=== PATIENT | female | born 1955 | race Hispanic/Latino ===

== ENCOUNTER 2017-08-01 10:42 | Observation (INO) | payer BC ==
[2017-08-01] MEDS ORDERED: Sodium Chloride 0.9% 1,000 ML IV STA (11:04)
--- NOTE | 2017-08-01 11:08 | ED PDOC ---
HPI: Chest Pain Time Seen by Provider: 08/01/17 10:58 History Per: Patient Onset/Duration Of Symptoms: Hrs (2) Current Symptoms Are (Timing): Still Present Severity: Moderate Associated Symptoms: denies: Nausea, Dyspnea, Diaphoresis, Syncope Additional Complaint(s): Palpitations assoc with weakness since this morning. Denies chest pain or LOC. No NVD. No fever. Past Medical History Vital Signs: Last Vital Signs Temp 96.4 F L 08/01/17 10:53 Pulse 88 08/01/17 11:37 Resp 14 08/01/17 11:37 BP 121/73 08/01/17 11:37 Pulse Ox 100 08/01/17 11:37 - Medical History PMH: Emphysema - Family History Family History: States: Unknown Family Hx - Home Medications Home Medications: Ambulatory Orders Medication Instructions Recorded Albuterol HFA [Ventolin HFA 90 2 puff IH Q4H PRN 08/01/17 mcg/actuation (8 g)] Alprazolam [Xanax] 0.5 mg PO Q12H 08/01/17 Escitalopram [Lexapro] 10 mg PO DAILY 08/01/17 Fluticasone/Salmeterol [Airduo 1 puff IH Q12H 08/01/17 Respiclick 113-14 Mcg] Melatonin [Melatonin] 5 mg PO HS 08/01/17 Omeprazole [Omeprazole] 20 mg PO DAILY 08/01/17 levoFLOXacin [Levaquin] 500 mg PO DAILY 08/01/17 - Allergies Allergies/Adverse Reactions: Allergies Allergy/AdvReac Type Severity Reaction Status Date / Time No Known Allergies Allergy Verified 03/25/16 11:48 Review of Systems ROS Statement: Except As Marked, All Systems Reviewed And Found Negative Constitutional: Positive for: Weakness Cardiovascular: Positive for: Palpitations Neurological: Negative for: Weakness, Numbness, Seizures Physical Exam - Reviewed Nursing Documentation Reviewed: Yes Vital Signs Reviewed: Yes - Physical Exam Appears: Positive for: Non-toxic, No Acute Distress Head Exam: Positive for: ATRAUMATIC, NORMAL INSPECTION, NORMOCEPHALIC Skin: Positive for: Normal Color, Warm, DRY Eye Exam: Positive for: EOMI, Normal appearance, PERRL ENT: Positive for: Normal ENT Inspection Neck: Positive for: Normal, Painless ROM Cardiovascular/Chest: Positive for: Regular Rate, Rhythm, Tachycardia Respiratory: Positive for: CNT, Normal Breath Sounds Gastrointestinal/Abdominal: Positive for: Normal Exam, Bowel Sounds, Soft Back: Positive for: Normal Inspection Extremity: Positive for: Normal ROM Neurologic/Psych: Positive for: Alert, Oriented - Laboratory Results Result Diagrams: 08/01/17 11:39 08/01/17 11:39 - ECG O2 Sat by Pulse Oximetry: 95 Disposition - Clinical Impression Clinical Impression: Palpitations, Arrhythmia - Patient ED Disposition Is Patient to be Admitted: Yes - Disposition Disposition Time: 12:54 Condition: FAIR - Pt Status Changed To: Hospital Disposition Of: Observation - POA Present On Arrival: None
[2017-08-01 11:48] LABS: BASO # 0.1 K/uL (0.0-0.2); BASO % 0.7 % (0.0-2.0); EOS # 0.1 K/uL (0.0-0.7); HEMOGLOBIN 14.2 g/dL (12.0-16.0); LYMPH % 26.2 % (20.0-40.0); MEAN CELL VOLUME 96.3 fl (81.0-99.0); MEAN CORPUSCULAR HEMOGLOBIN 32.2 pg (27.0-31.0); MEAN CORPUSCULAR HGB CONC 33.5 g/dL (33.0-37.0); MEAN PLATELET VOLUME 7.6 fl (7.2-11.7); MONO # 0.4 K/uL (0.0-0.8); MONO % 4.9 % (0.0-10.0); NEUT # 5.1 K/uL (1.8-7.0); NEUT % 67.2 % (50.0-75.0); NRBC % 0.1 % (0.0-0.0); RBC 4.41 Mil/uL (3.80-5.20); WHITE BLOOD COUNT 7.6 K/uL (4.8-10.8)
[2017-08-01 12:22] LABS: ALB/GLOB RATIO 1.3 (1.0-2.1); ALBUMIN 3.9 g/dL (3.5-5.0); ALT/SGPT 37 U/L (9-52); AST/SGOT 28 U/L (14-36); CALCIUM 9.6 mg/dL (8.4-10.2); GFR AFRICAN-AMERICAN > 60; GFR NON-AFRICAN AMERICAN 56
[2017-08-01 12:28] LABS: BLOOD UREA NITROGEN 21 mg/dl (7-17)
[2017-08-01] MEDS ORDERED: Albuterol HFA 90 mcg/actuation (8 g) IH PRN (14:30)
[2017-08-01 16:32] LABS: T4 6.78 ug/dl (5.5-11.0)
[2017-08-01 17:11] LABS: INR 1.3 (0.9-1.2); PARTIAL THROMBOPLASTIN TIME 31.2 Seconds (25.6-37.1)
--- NOTE | 2017-08-01 17:36 | CARD ---
APPROVED REPORT EXAM: Two-dimensional and M-mode echocardiogram with Doppler and color Doppler. INDICATION Palpitations 2D DIMENSIONS IVSd1.04 (0.7-1.1cm)LVDd3.66 (3.9-5.9cm) PWd1.12 (0.7-1.1cm)IVSs1.34 (0.8-1.2cm) LVDs2.65 (2.5-4.0cm)FS (%) 27.4 % PWs1.53 (0.8-1.2cm)LVEF (%)55.0 (>50%) M-Mode DIMENSIONS Left Atrium (MM)3.80 (2.5-4.0cm)Aortic Root2.67 (2.2-3.7cm) Aortic Cusp Exc.2.10 (1.5-2.0cm) Mitral Valve MV E Jcwbrpmg38.9cm/sMV E Peak Gr.146mmHgMV DECEL FHHR332yc MV A Nwigjpff75.7cm/sMV WSQ42ltZ/A ratio0.8 MVA (PHT)3.03cm2 TDI E/Lateral E'0.0E/Medial E'0.0 Tricuspid Valve TR Peak Ndkkvhmp729lv/sRAP EBMZWWGI2soElVA Peak Gr.23mmHg [id number] LEFT VENTRICLE The left ventricle is normal size. There is normal left ventricular wall thickness. The left ventricular function is normal. The left ventricular ejection fraction is within the normal range. There is normal LV segmental wall motion. Transmitral Doppler flow pattern is Grade I-abnormal relaxation pattern. RIGHT VENTRICLE The right ventricle is normal size. There is normal right ventricular wall thickness. The right ventricular systolic function is normal. ATRIA The left atrium size is normal. The right atrium size is normal. AORTIC VALVE The aortic valve is mildly thickened. No aortic regurgitation is present. There is no aortic valvular stenosis. MITRAL VALVE The anterior mitral valve leaflet appears myxomatous. There is no mitral valve stenosis. Mitral regurgitation is trace. TRICUSPID VALVE The tricuspid valve is normal in structure. There is trace to mild tricuspid regurgitation. PULMONIC VALVE The pulmonary valve is normal in structure. There is no pulmonic valvular regurgitation. GREAT VESSELS The aortic root is normal in size. The IVC was not visualized. PERICARDIAL EFFUSION The pericardium appears normal. <Conclusion> The left ventricle is normal size. There is normal left ventricular wall thickness. The left ventricular function is normal. The left ventricular ejection fraction is within the normal range. There is normal LV segmental wall motion. Transmitral Doppler flow pattern is Grade I-abnormal relaxation pattern. The anterior mitral valve leaflet appears myxomatous, consider CAL if there is a history of syncope Mitral regurgitation is trace.
--- NOTE | 2017-08-01 17:48 | CARD ---
APPROVED REPORT EKG Measurement Heart [id number] <Conclusion> Supraventricular tachycardia with frequent premature ventricular complexes Left anterior fascicular block Abnormal ECG
[2017-08-01] MEDS: Enoxaparin 40 mg Syringe SC SCH (18:23)
--- NOTE | 2017-08-01 20:12 | CP.PCM.CON ---
History of Present Illness - History of Present Illness History of Present Illness: THE PATIENT IS A 62 YEAR OLD FEMALE WITH A HISTORY OF SVT, COPD FROM CIGARETTE SMOKING, ANXIETY AND DEPRESSION. SHE HAD CLASSICAL SVT SEVERAL YEARS AGO AND WAS PLACED ON DIGOXIN WITH SUCCESS BUT SHE STOPPED IT ON HER OWN. SHE CLAIMS SHE HAD A RECENT THROAT INFECTION AND WAS PLACED ON ARITHROMAX BUT IT DIDN'T HELP AND SHE WAS CHANGED TO LEVAQIUN. SHE WAS OK YESTERDAY BUT EARLY THIS AM SHE WOKE UP EARLY AND NOTICED PALPITATIONS AND SHE FELT WEAK AND WAS SCARED SO SHE CAME TO THE ER AND WAS TACHYCARDIC AND HAD SINGLE PVCS AND SHE WAS ADMITTED TO OBSERVATION. CARDIOLOGY WAS CALLED TO SEE HER. SHE DENIES CHEST PAIN OR LOC. THE EKG WAS INCORRECTLY READ SVT BUT A CLOSE INSPECTION SHOW SINUS TACHYCARDIA, RATE OF 131 BPM AND 2 SINGLE PVC'S. SHE WAS PLACED ON METOPROLOL WITH A SLOWING OF THE HEART RATE AND SHE FEELS BETTER NOW. Past Patient History - Past Social History Smoking Status: Former Smoker - CARDIAC Hx Cardiac Disorders: Yes - PULMONARY Hx Emphysema: Yes - MUSCULOSKELETAL/RHEUMATOLOGICAL Hx Falls: No - PSYCHIATRIC Hx Anxiety: Yes Hx Depression: Yes Hx Substance Use: No - ANESTHESIA Hx Anesthesia: No Meds Allergies/Adverse Reactions: Allergies Allergy/AdvReac Type Severity Reaction Status Date / Time No Known Allergies Allergy Verified 03/25/16 11:48 - Medications Medications: Current Medications Albuterol (Ventolin Hfa 90 Mcg/Actuation (8 G)) 2 puff IH Q4H PRN PRN Reason: Shortness of Breath Alprazolam (Xanax) 0.5 mg PO Q12H [facility] Last Admin: 08/01/17 16:13 Dose: 0.5 mg Aspirin (Ecotrin) 81 mg PO DAILY [facility] Last Admin: 08/01/17 16:14 Dose: 81 mg Enoxaparin Sodium (Lovenox) 40 mg SC DAILY [facility] PRN Reason: Protocol Last Admin: 08/01/17 18:23 Dose: 40 mg Escitalopram Oxalate (Lexapro) 10 mg PO DAILY [facility] Last Admin: 08/01/17 16:39 Dose: 10 mg Metoprolol Tartrate (Lopressor) 12.5 mg PO Q12 [facility] Nicotine (Nicoderm Cq) 1 patch TD DAILY [facility] Physical Exam - Respiratory Exam Respiratory Exam: Clear to Auscultation Bilateral - Cardiovascular Exam Cardiovascular Exam: REGULAR RHYTHM, +S1, +S2 - Extremities Exam Extremities exam: Positive for: normal inspection - Additional Findings Additional findings: EKG UPON CLOSE INSPECTION SHOWS SINUS TACHYCARDIA WITH CLEARLY SEEN P WAVES AT A RATE OF 131 BPM AND 2 SINGLE PVC'S MILL SUPERVISOR NOW SHOWS NSR, R OF 73 BPM AND NO PVC'S TROPONIN NORMAL TFT NORMAL ECHO NORMAL LV SYSTOLIC CONTRACTION, MILDLY MYXOMATOUS ANTERIOR MITRAL LEAFLET, MILD MR, MILD TR Results - Vital Signs Recent Vital Signs: Last Vital Signs Temp 98.4 F 08/01/17 19:23 Pulse 85 08/01/17 19:23 Resp 20 08/01/17 19:23 BP 104/54 L 08/01/17 19:23 Pulse Ox 94 L 08/01/17 19:23 - Labs Result Diagrams: 08/01/17 11:39 08/01/17 11:39 Labs: Laboratory Results - last 24 hr 08/01/17 08/01/17 08/01/17 11:39 11:39 15:42 WBC 7.6 RBC 4.41 Hgb 14.2 Hct 42.5 MCV 96.3 MCH 32.2 H MCHC 33.5 RDW 13.0 Plt Count 240 MPV 7.6 Neut % (Auto) 67.2 Lymph % (Auto) 26.2 [place] % (Auto) 4.9 Eos % (Auto) 1.0 Baso % (Auto) 0.7 Neut # 5.1 Lymph # 2.0 [place] # 0.4 Eos # 0.1 Baso # 0.1 PT INR APTT Sodium 141 Potassium 4.6 Chloride 104 Carbon Dioxide 26 Anion Gap 16 BUN 21 H Creatinine 1.0 Est GFR ( Amer) > 60 Est GFR (Non-Af Amer) 56 Random Glucose 162 H Calcium 9.6 Total Bilirubin 0.5 AST 28 ALT 37 Alkaline Phosphatase 79 Troponin I 0.0130 Total Protein 6.9 Albumin 3.9 Globulin 2.9 Albumin/Globulin Ratio 1.3 Thyroxine (T4) 6.78 TSH 3rd Generation 1.34 08/01/17 16:12 WBC RBC Hgb Hct MCV MCH MCHC RDW Plt Count MPV Neut % (Auto) Lymph % (Auto) [place] % (Auto) Eos % (Auto) Baso % (Auto) Neut # Lymph # [place] # Eos # Baso # PT 14.0 H INR 1.3 H APTT 31.2 Sodium Potassium Chloride Carbon Dioxide Anion Gap BUN Creatinine Est GFR ( Amer) Est GFR (Non-Af Amer) Random Glucose Calcium Total Bilirubin AST ALT Alkaline Phosphatase Troponin I Total Protein Albumin Globulin Albumin/Globulin Ratio Thyroxine (T4) TSH 3rd Generation Assessment & Plan - Assessment and Plan (Free Text) Assessment: SYMPTOMATIC TACHYCARDIA WITH PALPITATIONS WITH THE EKG ACTUALLY SHOWING SINUS TACHYCARDIA, R OF 131 BPM AND 2 PVC'S HISTORY OF SVT IN THE PAST COPD ANXIETY DEPRESSION Plan: THE PATIENT WAS ADMITTED TO ON TELEMETRY O2, METOPROLOL, ASPIRIN, LOVENOX ECHO DONE EKG IN AM PATIENT DISCUSSED WITH DR BERGERON AND NURSING STAFF
[2017-08-02 00:24] VITALS: RESP 18
--- NOTE | 2017-08-02 00:41 | HP ---
HISTORY OF PRESENT ILLNESS: Ms. Pickett is a 62-year-old female, who was admitted via the emergency room because of palpitations started in the night prior to admission. She showed up in the emergency room where she was found to have SVT on one monitor and then trigeminy on another. She was therefore admitted, admission for workup and therapy. PAST MEDICAL HISTORY: She has a past medical history of chronic obstructive pulmonary disease, anxiety disorder and palpitations in the past. MEDICATIONS: She has been on Tenormin years ago, but stopped taking the medications. FAMILY HISTORY: Nonrevealing. SOCIAL HISTORY: She smoked cigarettes. Indicates she quit several months ago. Does not drink alcohol and does not use drugs and is . PHYSICAL EXAMINATION: GENERAL: The patient is alert, oriented, appears much more comfortable at present. VITAL SIGNS: Blood pressure on admission was 121/73, but down to 97/47; pulse of 70; respiratory rate is 18; she is afebrile; O2 sat is 98% on room air. SKIN: Shows fair turgor. HEENT: Pupils equal and reactive to light and accommodation. Mouth shows fair hygiene. NECK: JVP flat. LUNGS: Clear. There was some basal dullness. ABDOMEN: Soft, nontender. No organomegaly. EXTREMITIES: Show no edema or cyanosis. CENTRAL NERVOUS SYSTEM: Grossly intact. LABORATORY DATA: Remarkable for WBC of 7.6, hemoglobin of 14.2, platelet count of 240,000. Sodium 141, potassium 4.6, BUN of 21, creatinine 1.0, glucose of 162, troponin 0.0130. EKG, official report is still pending, but one rhythm shows supraventricular tachycardia with PVCs, but the monitor shows what appears to be trigemini. IMPRESSION: Cardiac arrhythmias. One has to rule out acute coronary syndrome. Rule out thyroid etiology. History of anxiety disorder. PLAN: Beta blockers. Cardiac evaluation. We will obtain echocardiogram. Cardiac monitoring in the telemetry. Further therapy will depend on findings. Chandler Valadez MD
[2017-08-02 08:08] VITALS: BP 110/67; PULSE 63; TEMP 98.5; O2SAT 94
[2017-08-02] MEDS: Enoxaparin 40 mg Syringe SC SCH (09:12)
--- NOTE | 2017-08-02 10:08 | CP.PCM.DIS ---
Provider - Provider Date of Admission: 08/01/17 12:52 Attending physician: Chandler Valadez MD Time Spent in preparation of Discharge (in minutes): 35 Diagnosis - Discharge Diagnosis (1) Anxiety Status: Acute (2) Chronic obstructive pulmonary disease Status: Acute (3) Arrhythmia Status: Acute (4) Palpitations Status: Acute Hospital Course - Lab Results Lab Results: Most Recent Lab Values WBC 7.6 K/uL (4.8-10.8) 08/01/17 11:39 RBC 4.41 Mil/uL (3.80-5.20) 08/01/17 11:39 Hgb 14.2 g/dL (12.0-16.0) 08/01/17 11:39 Hct 42.5 % (34.0-47.0) 08/01/17 11:39 MCV 96.3 fl (81.0-99.0) 08/01/17 11:39 MCH 32.2 pg (27.0-31.0) H 08/01/17 11:39 MCHC 33.5 g/dL (33.0-37.0) 08/01/17 11:39 RDW 13.0 % (11.5-14.5) 08/01/17 11:39 Plt Count 240 K/uL (130-400) 08/01/17 11:39 MPV 7.6 fl (7.2-11.7) 08/01/17 11:39 Neut % (Auto) 67.2 % (50.0-75.0) 08/01/17 11:39 Lymph % (Auto) 26.2 % (20.0-40.0) 08/01/17 11:39 [place] % (Auto) 4.9 % (0.0-10.0) 08/01/17 11:39 Eos % (Auto) 1.0 % (0.0-4.0) 08/01/17 11:39 Baso % (Auto) 0.7 % (0.0-2.0) 08/01/17 11:39 Neut # 5.1 K/uL (1.8-7.0) 08/01/17 11:39 Lymph # 2.0 K/uL (1.0-4.3) 08/01/17 11:39 [place] # 0.4 K/uL (0.0-0.8) 08/01/17 11:39 Eos # 0.1 K/uL (0.0-0.7) 08/01/17 11:39 Baso # 0.1 K/uL (0.0-0.2) 08/01/17 11:39 PT 14.0 Seconds (9.8-13.1) H 08/01/17 16:12 INR 1.3 (0.9-1.2) H 08/01/17 16:12 APTT 31.2 Seconds (25.6-37.1) 08/01/17 16:12 Sodium 141 mmol/l (132-148) 08/01/17 11:39 Potassium 4.6 MMOL/L (3.6-5.0) 08/01/17 11:39 Chloride 104 mmol/L (98-107) 08/01/17 11:39 Carbon Dioxide 26 mmol/L (22-30) 08/01/17 11:39 Anion Gap 16 (10-20) 08/01/17 11:39 BUN 21 mg/dl (7-17) H 08/01/17 11:39 Creatinine 1.0 mg/dl (0.7-1.2) 08/01/17 11:39 Est GFR ( Amer) > 60 08/01/17 11:39 Est GFR (Non-Af Amer) 56 08/01/17 11:39 Random Glucose 162 mg/dL (65-105) H 08/01/17 11:39 Calcium 9.6 mg/dL (8.4-10.2) 08/01/17 11:39 Total Bilirubin 0.5 mg/dl (0.2-1.3) 08/01/17 11:39 AST 28 U/L (14-36) 08/01/17 11:39 ALT 37 U/L (9-52) 08/01/17 11:39 Alkaline Phosphatase 79 U/L (38-126) 08/01/17 11:39 Troponin I 0.0320 ng/mL (0.00-0.120) 08/01/17 20:25 Total Protein 6.9 G/DL (6.3-8.2) 08/01/17 11:39 Albumin 3.9 g/dL (3.5-5.0) 08/01/17 11:39 Globulin 2.9 gm/dL (2.2-3.9) 08/01/17 11:39 Albumin/Globulin Ratio 1.3 (1.0-2.1) 08/01/17 11:39 Thyroxine (T4) 6.78 ug/dl (5.5-11.0) 08/01/17 15:42 TSH 3rd Generation 1.34 mIU/ML (0.46-4.68) 08/01/17 15:42 - Hospital Course Hospital Course: SYMPTOMS RESOLVED Discharge Exam - Head Exam Head Exam: ATRAUMATIC, NORMAL INSPECTION, NORMOCEPHALIC - Eye Exam Eye Exam: EOMI, Normal appearance, PERRL Pupil Exam: NORMAL ACCOMODATION, PERRL - GI/Abdominal Exam GI & Abdominal Exam: Normal Bowel Sounds - Rectal Exam Rectal Exam: NORMAL INSPECTION - Neurological Exam Neurological exam: Alert, CN II-XII Intact, Normal Gait, Oriented x3, Reflexes Normal - Psychiatric Exam Psychiatric exam: Normal Affect, Normal Mood - Skin Skin Exam: Dry, Intact, Normal Color, Warm Discharge Plan - Follow Up Plan Condition: FAIR Disposition: HOME/ ROUTINE Patient education suggested?: Yes Additional Instructions: DISCHARGE TODAY ON PO LOPRESSOR AND ASA FOLLOW UP WITH APARTMENT HOTEL MANAGER
--- NOTE | 2017-08-02 11:29 | CP.PCM.PN ---
Subjective - Date & Time of Evaluation Date of Evaluation: 08/02/17 Time of Evaluation: 09:45 - Subjective Subjective: NO FURTHER PALPITATIONS NO CHEST PAIN OR SOB Objective - Vital Signs/Intake and Output Vital Signs (last 24 hours): Temp Pulse Resp BP Pulse Ox 98.5 F 63 18 110/67 94 L 08/02/17 08:00 08/02/17 09:11 08/02/17 08:00 08/02/17 09:11 08/02/17 08:00 - Medications Medications: Current Medications Albuterol (Ventolin Hfa 90 Mcg/Actuation (8 G)) 2 puff IH Q4H PRN PRN Reason: Shortness of Breath Alprazolam (Xanax) 0.5 mg PO Q12H [facility] Last Admin: 08/02/17 02:44 Dose: 0.5 mg Aspirin (Ecotrin) 81 mg PO DAILY [facility] Last Admin: 08/02/17 09:10 Dose: 81 mg Enoxaparin Sodium (Lovenox) 40 mg SC DAILY [facility] PRN Reason: Protocol Last Admin: 08/02/17 09:12 Dose: 40 mg Escitalopram Oxalate (Lexapro) 10 mg PO DAILY [facility] Last Admin: 08/02/17 09:11 Dose: 10 mg Metoprolol Tartrate (Lopressor) 12.5 mg PO Q12 [facility] Last Admin: 08/02/17 09:11 Dose: 12.5 mg Nicotine (Nicoderm Cq) 1 patch TD DAILY [facility] Last Admin: 08/02/17 09:13 Dose: Not Given - Labs Labs: 08/01/17 11:39 08/01/17 11:39 PT 14.0 Seconds (9.8-13.1) H 08/01/17 16:12 INR 1.3 (0.9-1.2) H 08/01/17 16:12 APTT 31.2 Seconds (25.6-37.1) 08/01/17 16:12 - Respiratory Exam Respiratory Exam: Clear to Ausculation Bilateral - Cardiovascular Exam Cardiovascular Exam: REGULAR RHYTHM, +S1, +S2 - Extremities Exam Extremities Exam: Normal Inspection - Additional Findings Additional findings: EKG NSR TELECOMMUNICATIONS ADMINISTRATOR NSR AT GOOD RATES TROPONINS NORMAL Assessment and Plan - Assessment and Plan (Free Text) Assessment: SYMPTOMATIC PALPITATIONS WITH SINUS TACHYCARDIA AND SINGLE PVCS-NOW IN SINUS RHYTHM AT NORMAL RATES AND ASYMPTOMATIC Plan: OK TO DISCHARGE PATIENT FRON THE CARDIAC VIEWPOINT METOPROLOL TARTRATE 12.5 MGS PO BID PATIENT INSTRUCTED TO CALL MY OFFICE FOR AN APPT IN 1 TO 2 WEEKS
--- NOTE | 2017-08-02 19:28 | CARD ---
APPROVED REPORT EKG Measurement Heart [id number] <Conclusion> Sinus bradycardia Left axis deviation Possible Anterior infarct, age undetermined Abnormal ECG
== END 2017-08-02 14:29 | disposition home or self-care (01) ==
LOC: H.ER 10:42 → H.ERHOLD 12:52 → H.TEL 17:00
PROVIDERS: ADMIT Internal Medicine Pulmonary Disease; ATTEND Internal Medicine Pulmonary Disease
DX: I47.1 Supraventricular tachycardia (principal); I49.3 Ventricular premature depolarization; J43.9 Emphysema, unspecified; F41.9 Anxiety disorder, unspecified; F32.9 Major depressive disorder, single episode, unspecified; Z87.891 Personal history of nicotine dependence
CPT/HCPCS: 80053; 84436; 84443; 84484; 85025; 85610; 85730; 93005; 93306; 99285; G0378; J1650; J7040

== ENCOUNTER 2017-11-01 13:21 | Emergency (ER) | payer BC ==
[2017-11-01 13:33] VITALS: BP 126/74; PULSE 81; RESP 18; TEMP 98; O2SAT 99
--- NOTE | 2017-11-01 13:58 | ED PDOC ---
Upper Extremity Pain/Injury Time Seen by Provider: 11/01/17 13:34 Chief Complaint (Nursing): Upper Extremity Problem/Injury Chief Complaint (Provider): Upper Extremity Problem/Injury History Per: Patient History/Exam Limitations: no limitations Onset/Duration Of Symptoms: Days (x1) Current Symptoms Are (Timing): Still Present Additional Complaint(s): Na Pickett is a 62 year old female with a past medical history of cardiac disorders, depression, and anxiety, who is presenting to the ER for evaluation of right elbow pain and swelling, s/p bumping it on a concrete wall yesterday. She denies any numbness, tingling, weakness, or previous injury. Patient offers no other medical complaints at this time. PMD: Chandler Valadez I Past Medical History Reviewed: Historical Data, Nursing Documentation, Vital Signs Vital Signs: Last Vital Signs Temp 98.0 F 11/01/17 13:31 Pulse 81 11/01/17 13:31 Resp 18 11/01/17 13:31 BP 126/74 11/01/17 13:31 Pulse Ox 99 11/01/17 13:31 - Medical History PMH: Anxiety, Depression, Emphysema, Mitral Valve Prolapse - Family History Family History: States: Unknown Family Hx - Immunization History Hx Tetanus Toxoid Vaccination: No Hx Influenza Vaccination: No Hx Pneumococcal Vaccination: No - Home Medications Home Medications: Ambulatory Orders Medication Instructions Recorded Albuterol HFA [Ventolin HFA 90 2 puff IH Q4H PRN 08/01/17 mcg/actuation (8 g)] Alprazolam [Xanax] 0.5 mg PO Q12H 08/01/17 Escitalopram [Lexapro] 10 mg PO DAILY 08/01/17 Melatonin 5 mg PO HS 08/01/17 Omeprazole 20 mg PO DAILY 08/01/17 Aspirin [Ecotrin] 81 mg PO DAILY #30 tabec 08/02/17 Metoprolol Tartrate [Lopressor] 12.5 mg PO Q12 #60 tab 08/02/17 - Allergies Allergies/Adverse Reactions: Allergies Allergy/AdvReac Type Severity Reaction Status Date / Time No Known Allergies Allergy Verified 03/25/16 11:48 Review of Systems ROS Statement: Except As Marked, All Systems Reviewed And Found Negative Musculoskeletal: Positive for: Arm Pain (elbow pain and swelling) Neurological: Negative for: Numbness, Other (tingling) Physical Exam - Reviewed Nursing Documentation Reviewed: Yes Vital Signs Reviewed: Yes - Physical Exam Appears: Positive for: Non-toxic, No Acute Distress Head Exam: Positive for: ATRAUMATIC, NORMAL INSPECTION, NORMOCEPHALIC Skin: Positive for: Normal Color Pulses-Radial (L): 2+ Pulses-Radial (R): 2+ Extremity: Positive for: Normal ROM (full, actively), Capillary Refill (normal, less than 2 seconds), Swelling ((+) minimal swelling to lateral aspect of right elbow, mild scaling over olecranon process), Other ((-) break in skin integrity , (-) warmth, erythema). Negative for: Tenderness (right upper extremity), Deformity Neurologic/Psych: Positive for: Alert, Oriented. Negative for: Motor/Sensory Deficits - ECG O2 Sat by Pulse Oximetry: 99 (RA) Pulse Ox Interpretation: Normal Medical Decision Making Medical Decision Making: Time: 13:37 Plan: --X-Ray Right Elbow --Offered pain meds but refused X-Ray Right Elbow: FINDINGS: BONES: No acute fracture. JOINTS: Unremarkable. SOFT TISSUES: Normal. JOINT EFFUSION: None. OTHER FINDINGS: None. IMPRESSION: No demonstrated fracture or dislocation. Elbow mitchell wrapped by TERRANCE. Advised to f/u with Dr. Bony Dillon for further evaluation. RICE instructions given. Scribe Attestation: Documented by Reshma Hassan, acting as a scribe for Pranav Ochoa PA-C. Provider Scribe Attestation: All medical record entries made by the Scribe were at my direction and personally dictated by me. I have reviewed the chart and agree that the record accurately reflects my personal performance of the history, physical exam, medical decision making, and the department course for this patient. I have also personally directed, reviewed, and agree with the discharge instructions and disposition. Disposition - Clinical Impression Clinical Impression: Elbow contusion - Patient ED Disposition Is Patient to be Admitted: No - Disposition Referrals: Kemar Baker MD [Staff Provider] - Disposition: Routine/Home Disposition Time: 14:30 Condition: STABLE Additional Instructions: Follow up with Dr. Bony Dillon for further evaluation. Return to ED immediately if symptoms worsen. Instructions: Contusion (DC) Forms: [employer] (Luxembourgish) Print Language: DIVEHI
--- NOTE | 2017-11-01 14:12 | RAD ---
PROCEDURE: Radiographs of the right elbow. HISTORY: trauma COMPARISON: No prior. FINDINGS: BONES: No acute fracture. JOINTS: Unremarkable. SOFT TISSUES: Normal. JOINT EFFUSION: None. OTHER FINDINGS: None. IMPRESSION: No demonstrated fracture or dislocation.
== END 2017-11-01 14:30 | disposition home or self-care (01) ==
LOC: H.ER 13:21
DX: S50.01XA Contusion of right elbow, initial encounter (principal); W22.8XXA Striking against or struck by other objects, initial encounter; Y92.89 Other specified places as the place of occurrence of the external cause; F32.9 Major depressive disorder, single episode, unspecified; F41.9 Anxiety disorder, unspecified; I34.1 Nonrheumatic mitral (valve) prolapse; J43.9 Emphysema, unspecified; Z79.82 Long term (current) use of aspirin

== ENCOUNTER 2018-06-17 15:52 | Emergency (ER) | payer BC, MEDICARE ==
[2018-06-17 16:11] VITALS: O2SAT 96
[2018-06-17 18:13] LABS: ALB/GLOB RATIO 1.4 (1.0-2.1); ALBUMIN 4.3 g/dL (3.5-5.0); ALT/SGPT 38 U/L (9-52); AST/SGOT 29 U/L (14-36); BLOOD UREA NITROGEN 19 mg/dl (7-17); CALCIUM 9.3 mg/dL (8.4-10.2); GFR NON-AFRICAN AMERICAN > 60
--- NOTE | 2018-06-17 18:30 | ED PDOC ---
HPI: General Adult Time Seen by Provider: 06/17/18 17:13 Chief Complaint (Nursing): Dizziness/Lightheaded Chief Complaint (Provider): leg pains, skin changes, dizzy History Per: Patient History/Exam Limitations: no limitations Onset/Duration Of Symptoms: Days (1) Current Symptoms Are (Timing): Still Present Severity: Moderate Location Of Discomfort (Image): 1 - livedo reticularis Similar Symptoms Previously: no Recent Trauma: no Additional Complaint(s): 63yo female presents c/o severe upper leg pains which prevented her from sitting comfortably associated with lacy rash to bilateral legs, states started suddenly yesterday. Notes she is in physical therapy for back scoliosis/pain and last had PT friday without issue, denies new exercise or overexertion. Denies abd pain, chest pain or back pain. Does not had presyncope with some abdominal discomfort last week at PT but resolved with rest. Denies prior hx of skin conditions, weight loss, fever, N/V or melena. Past Medical History Reviewed: Historical Data, Nursing Documentation, Vital Signs Vital Signs: Last Vital Signs Temp 97.3 F L 06/17/18 16:07 Pulse 73 06/17/18 16:07 Resp 16 06/17/18 16:07 BP 151/78 H 06/17/18 16:07 Pulse Ox 96 06/17/18 16:07 - Medical History PMH: Anxiety, Depression, Emphysema, HTN, Mitral Valve Prolapse Denies: Chronic Kidney Disease - Surgical History Surgical History: No Surg Hx - Family History Family History: States: Unknown Family Hx - Social History Current smoker - smoking cessation education provided: No (quit) - Immunization History Hx Tetanus Toxoid Vaccination: No Hx Influenza Vaccination: No Hx Pneumococcal Vaccination: No - Home Medications Home Medications: Ambulatory Orders Medication Instructions Recorded Albuterol HFA [Ventolin HFA 90 2 puff IH Q4H PRN 08/01/17 mcg/actuation (8 g)] Alprazolam [Xanax] 0.5 mg PO Q12H 08/01/17 Escitalopram [Lexapro] 10 mg PO DAILY 08/01/17 Melatonin 5 mg PO HS 08/01/17 Omeprazole 20 mg PO DAILY 08/01/17 Aspirin [Ecotrin] 81 mg PO DAILY #30 tabec 08/02/17 Metoprolol Tartrate [Lopressor] 12.5 mg PO Q12 #60 tab 08/02/17 Ibuprofen [Motrin Tab] 600 mg PO Q6 PRN #15 tab 06/17/18 - Allergies Allergies/Adverse Reactions: Allergies Allergy/AdvReac Type Severity Reaction Status Date / Time No Known Allergies Allergy Verified 03/25/16 11:48 Review of Systems Constitutional: Negative for: Fever Eyes: Negative for: Vision Change ENT: Negative for: Ear Pain Cardiovascular: Negative for: Chest Pain Respiratory: Negative for: Cough Gastrointestinal: Positive for: Abdominal Pain Genitourinary Female: Negative for: Dysuria Musculoskeletal: Positive for: Back Pain, Leg Pain. Negative for: Arm Pain Skin: Negative for: Rash, Lesions Neurological: Negative for: Weakness, Numbness, Confusion, Headache, Dizziness Psych: Negative for: Suicidal ideation Physical Exam - Reviewed Nursing Documentation Reviewed: Yes Vital Signs Reviewed: Yes - Physical Exam Appears: Positive for: Well, Non-toxic, No Acute Distress Head Exam: Positive for: ATRAUMATIC, NORMAL INSPECTION, NORMOCEPHALIC Skin: Positive for: Warm, Rash (lacy levido reticularis pattern to b/l legs). Negative for: Cyanosis Eye Exam: Positive for: EOMI, Normal appearance, PERRL ENT: Positive for: Normal ENT Inspection Neck: Positive for: Normal, Painless ROM Cardiovascular/Chest: Positive for: Regular Rate, Rhythm Respiratory: Positive for: CNT, Normal Breath Sounds Pulses-Dorsalis Pedis (L): 2+ Pulses-Dorsalis Pedis (R): 2+ Pulses-Femoral (L): 2+ Pulses-Femoral (R): 2+ Pulses-Radial (L): 3+/4+ Pulses-Radial (R): 3+/4+ Gastrointestinal/Abdominal: Positive for: Normal Exam, Soft Back: Positive for: Normal Inspection Extremity: Positive for: Normal ROM, Other (skin pattern as above). Negative for: Tenderness, Deformity, Swelling Neurologic/Psych: Positive for: Alert, Oriented. Negative for: Motor/Sensory Deficits, Aphasia - Laboratory Results Result Diagrams: 06/17/18 19:06/17/18 17:30 - ECG O2 Sat by Pulse Oximetry: 96 Pulse Ox Interpretation: Normal Medical Decision Making Medical Decision Making: workup for leg pain w preceeding dizziness and abd discomfort initiated, check CTA C/A/P r/o vascular compromise/emoli/dissection given b/l leg and skin changes. Check US duplex and Art duplex legs. check labs. Warm blanket to legs labs are unremarkable, CK normal, ESR normal US duplex arteries b/l LE normal per radiologist US duplex veins b/l LE normal per radiologist, no DVT CTA abd pelv reveal no dissection, esophageal hernia some scattered nodules in chest for smoking history patient told for followup pulmonary. DC from ED, followup PMD and pulmonary, caution w PT for next one week. Disposition - Clinical Impression Clinical Impression: Livedo reticularis, Leg pain - Patient ED Disposition Is Patient to be Admitted: No Counseled Patient/Family Regarding: Studies Performed, Diagnosis, Need For Followup - Disposition Referrals: Chandler Valadez MD [Family Provider] - Disposition: Routine/Home Disposition Time: 20:59 Condition: STABLE Additional Instructions: Followup with Dr Valadez for futher testing and monitoring of several small nodules in lungs. Return to ER for any worse or new symptoms. Use motrin for pain, caution with physical therapy for next week until cleared by your doctor/ Prescriptions: Ibuprofen [Motrin Tab] 600 mg PO Q6 PRN #15 tab PRN Reason: Pain, Moderate (4-7) Instructions: Muscle and Bone Pain (DC), Skin Rash (DC) Forms: [employer]ide[employer] (Hebrew)
--- NOTE | 2018-06-17 18:33 | US ---
Date of service: 06/17/2018 PROCEDURE: Bilateral lower extremity venous duplex Doppler. HISTORY: bl leg pain w mottling COMPARISON: None available. TECHNIQUE: Bilateral common femoral, superficial femoral, popliteal and posterior tibial veins were evaluated. Flow was assessed with color Doppler, compressibility, assessment of phasic flow and augmentation response. FINDINGS: COMMON FEMORAL VEIN: Right CFV: Unremarkable. Left CFV: Unremarkable. SUPERFICIAL FEMORAL VEIN: Right SFV: Unremarkable. Left SFV: Unremarkable. POPLITEAL VEIN: Right Popliteal: Unremarkable. Left Popliteal: Unremarkable. POSTERIOR TIBIAL VEIN: Right PTV: Unremarkable. Left PTV: Unremarkable. OTHER FINDINGS: None. IMPRESSION: No evidence of deep venous thrombosis.
[2018-06-17 18:35] LABS: PROTHROMBIN TIME 11.9 Seconds (9.8-13.1)
[2018-06-17] MEDS ORDERED: Iodixanol 320 MG/ML 100 ML BOTTLE IV ONE (18:39)
[2018-06-17] MEDS ORDERED: Sodium Chloride 0.9% 50 ML IV ONE (18:39)
--- NOTE | 2018-06-17 18:45 | US ---
Date of service: 06/17/2018 PROCEDURE: Duplex ultrasound of the bilateral lower extremity arteries. HISTORY: b/l leg pain w mottling COMPARISON: June 17, 2018 bilateral lower extremity duplex venous sonography. TECHNIQUE: Grayscale and duplex Doppler evaluation of the bilateral common femoral, superficial femoral, popliteal, posterior tibial and dorsalis pedis arteries was performed.. FINDINGS: RIGHT LOWER EXTREMITY: RIGHT COMMON FEMORAL ARTERY: Widely patent. Maximal flow velocity of 73.6 cm/s. RIGHT SUPERFICIAL FEMORAL ARTERY: Widely patent. Maximal flow velocity of 67.6 cm/s. RIGHT POPLITEAL ARTERY:Widely patent. Maximal flow velocity of 36.4 cm/s. RIGHT POSTERIOR TIBIAL ARTERY: Widely patent. Maximal flow velocity of 43.7 cm/s. RIGHT DORSALIS PEDIS ARTERY: Widely patent. Maximal flow velocity of 33.2 cm/s. LEFT LOWER EXTREMITY: LEFT COMMON FEMORAL ARTERY: Widely patent. Maximal flow velocity of 93.5 cm/s. LEFT SUPERFICIAL FEMORAL ARTERY: Widely patent. Maximal flow velocity of 55.8 cm/s. LEFT POPLITEAL ARTERY:Widely patent. Maximal flow velocity of 40.5 cm/s. LEFT POSTERIOR TIBIAL ARTERY: Widely patent. Maximal flow velocity of 70.9 cm/s. LEFT DORSALIS PEDIS ARTERY: Widely patent. Maximal flow velocity of 16.2 cm/s. OTHER FINDINGS: None. IMPRESSION: Normal Duplex Doppler of the bilateral lower extremity arteries.
[2018-06-17 19:19] LABS: BASO # 0.1 K/uL (0.0-0.2); BASO % 0.7 % (0.0-2.0); EOS # 0.1 K/uL (0.0-0.7); EOS % 1.6 % (0.0-4.0); HEMOGLOBIN 14.6 g/dL (12.0-16.0); LYMPH # 1.6 K/uL (1.0-4.3); LYMPH % 19.9 % (20.0-40.0); MEAN CELL VOLUME 96.1 fl (81.0-99.0); MEAN CORPUSCULAR HEMOGLOBIN 32.1 pg (27.0-31.0); MEAN CORPUSCULAR HGB CONC 33.4 g/dL (33.0-37.0); MEAN PLATELET VOLUME 7.6 fl (7.2-11.7); MONO # 0.5 K/uL (0.0-0.8); MONO % 6.3 % (0.0-10.0); NEUT # 5.7 K/uL (1.8-7.0); NEUT % 71.5 % (50.0-75.0); NRBC % 0.1 % (0.0-0.0); RBC 4.53 Mil/uL (3.80-5.20); RED CELL DISTRIBUTION WIDTH 13.6 % (11.5-14.5); WHITE BLOOD COUNT 7.9 K/uL (4.8-10.8)
[2018-06-17 20:11] VITALS: BP 145/65; PULSE 72; RESP 18; TEMP 98.3
--- NOTE | 2018-06-18 11:00 | CT ---
PROCEDURE: CT Angiography Chest, Abdomen and Pelvis with and without intravenous contrast HISTORY: LE discoloration bilateral leg pain COMPARISON: None. TECHNIQUE: Contiguous axial images of the chest, abdomen and pelvis were obtained in the phase of aortic enhancement. A noncontrast enhanced CT of the chest was also obtained to evaluate for possible intramural thrombus. Coronal and sagittal reformats were generated. IV dose administered: 90 mL Visipaque 320 Radiation dose: Total exam DLP = 696.86 mGy-cm. This CT exam was performed using one or more of the following dose reduction techniques: Automated exposure control, adjustment of the mA and/or kV according to patient size, and/or use of iterative reconstruction technique. FINDINGS: CT ANGIOGRAPHY OF THE CHEST WITH & WITHOUT CONTRAST: AORTA (CHEST AND ABDOMEN): The thoracic and abdominal aorta are unremarkable, without aneurysm, dissection or rupture. No intramural thrombus identified in the thoracic aorta on the non-contrast ct of the chest. The celiac axis, superior mesenteric artery, inferior mesenteric artery and the renal arteries are widely patent. The pelvic arteries are unremarkable. There is atherosclerotic calcification of the abdominal aorta. LUNGS: Minimal centrilobular pulmonary emphysema. No infiltrate. 1.6 cm mass in the superior segment left lower lobe and 1.4 cm mass in the superior segment left lower lobe. There is a small nodular calcifications seen centrally within the 1.6 cm mass. This is of uncertain significance. Further evaluation with percutaneous biopsy or PET CT is advised. MEDIASTINUM: Normal caliber aorta and pulmonary arterial trunk. No evidence of thoracic aortic dissection. Mild cardiomegaly. Moderate paraesophageal hiatal hernia. There is atherosclerotic calcification of the thoracic aorta. LYMPH NODES: Unremarkable. PLEURA: Unremarkable. No pneumothorax. No pleural fluid. BONES: No acute fracture. Thoracic dextroscoliosis and lumbar levoscoliosis. OTHER FINDINGS: None. CT ANGIOGRAPHY OF THE ABDOMEN AND PELVIS WITH CONTRAST: LIVER: Unremarkable. No gross lesion or ductal dilatation. GALLBLADDER AND BILE DUCTS: Unremarkable. PANCREAS: Unremarkable. No gross lesion or ductal dilatation. SPLEEN: Unremarkable. ADRENALS: Unremarkable. No mass. KIDNEYS AND URETERS: Unremarkable. No hydronephrosis. No solid mass. VASCULATURE: Unremarkable. No aortic aneurysm. STOMACH AND BOWEL: Sigmoid diverticulosis. No evidence of diverticulitis. No other abnormal bowel loops. No bowel obstruction. APPENDIX: Not identified. No secondary findings to suggest acute appendicitis. PERITONEUM: Unremarkable. No free fluid. No free air. LYMPH NODES: Unremarkable. No enlarged lymph nodes. BLADDER: Unremarkable. REPRODUCTIVE: Normal postmenopausal uterus BONES: No acute fracture. OTHER FINDINGS: None. IMPRESSION: No evidence of thoracic or abdominal aortic dissection or aneurysmal dilatation. No evidence of occlusion or severe stenosis of the iliac vessels. Mild centrilobular pulmonary emphysema. Two masses in the left lower lobe concerning for malignant neoplasm. Recommend further evaluation with either percutaneous biopsy or PET CT examination. Sigmoid diverticulosis without evidence of diverticulitis. Hiatal hernia. Thoracolumbar scoliosis. No other significant abnormality. The preliminary findings for this examination were reported by [facility] at 8:47 p.m. on 06/17/2018. There is concurrence of this report with the preliminary findings.
== END 2018-06-17 21:17 | disposition home or self-care (01) ==
LOC: H.ER 15:52
DX: R23.1 Pallor (principal); M79.606 Pain in leg, unspecified; M41.9 Scoliosis, unspecified
CPT/HCPCS: 71275; 74174; 80053; 82550; 83735; 84484; 85025; 85610; 85651; 85730; 93925; 93970; 96374; 99285; J2060; Q9967